=== PATIENT | male | born 2000 | race Two or more races ===

== ENCOUNTER 2020-08-17 14:06 | Emergency (ER) | payer OTHER ==
--- NOTE | 2020-08-17 15:36 | ER Document Report ---
ED Medical Screen (RME) - General Chief Complaint: Abdominal Pain Stated Complaint: ABDOMINAL PROBLEM Time Seen by Provider: 08/17/20 15:25 Mode of Arrival: Ambulatory Information source: Patient Notes: HPI; 19-year-old male who states he was sent to the emergency room by his second crusher for blood work to check his kidneys. Patient states that he has been on Humira for about a year for being immunocompromised. States he had a routine visit with his second crusher this morning he wanted labs done to monitor his kidneys. Patient offers no complaints, no nausea, no vomiting, no abdominal pain no urinary symptoms. PE: Alert and oriented x3. Lungs: Clear to auscultation without rales, rhonchi, wheezes. Heart: Regular rate rhythm without murmurs, rubs, gallops. I have greeted and performed a rapid initial assessment of this patient. A comprehensive ED assessment and evaluation of the patient, analysis of test results and completion of the medical decision making process will be conducted by additional ED providers. I have specifically instructed the patient or family members with the patient to immediately return to any nursing staff should anything change in the patient's condition or with their chief complaint. TRAVEL OUTSIDE OF THE [place] IN LAST 30 DAYS: No - Related Data Allergies/Adverse Reactions: No Known Allergies Allergy (Verified 08/17/20 15:22) Home Medications: humira Past Medical History - Social History Frequency of alcohol use: Occasional Physical Exam - Vital signs Vitals: Temp Pulse Resp BP Pulse Ox 99.2 F 75 18 122/70 98 08/17/20 14:13 08/17/20 14:13 08/17/20 14:13 08/17/20 14:13 08/17/20 14:13 Course - Vital Signs Vital signs: Temp Pulse Resp BP Pulse Ox 99.2 F 75 18 122/70 98 08/17/20 14:13 08/17/20 14:13 08/17/20 14:13 08/17/20 14:13 08/17/20 14:13
[2020-08-17 16:08] LABS: ABSOLUTE EOSINOPHILS # (AUTO) 0.2 10^3/uL (0.0-0.6); ABSOLUTE LYMPHOCYTES (AUTO) 3.6 10^3/uL (0.5-4.7); ABSOLUTE MONOCYTES (AUTO) 0.5 10^3/uL (0.1-1.4); ABSOLUTE NEUT (AUTO) 2.7 10^3/uL (1.7-8.2); BASOPHILS % (AUTO) 0.6 % (0-2); EOSINOPHILS % (AUTO) 2.6 % (0-6); HEMATOCRIT 44.4 % (37.9-51.0); HEMOGLOBIN 15.5 g/dL (13.5-17.0); LYMPHOCYTES % (AUTO) 51.3 % (13-45); MEAN CORPUSCULAR HGB CONC 34.9 g/dL (32.0-36.0); MEAN CORPUSCULAR VOLUME 83 fl (80-97); MONOCYTES % (AUTO) 7.5 % (3-13); PLATELET COUNT 197 10^3/uL (150-450); RED BLOOD COUNT 5.35 10^6/uL (4.35-5.55); TOTAL CELLS COUNTED % (AUTO) 100 %
[2020-08-17 16:19] LABS: AMORPHOUS SEDIMENT,URINE 1+ /HPF; APPEARANCE,URINE CLOUDY; BILIRUBIN,URINE NEGATIVE (NEGATIVE); COLOR,URINE YELLOW; GLUCOSE, URINE NEGATIVE (NEGATIVE); KETONES,URINE NEGATIVE (NEGATIVE); LEUKOCYTE ESTERASE,URINE NEGATIVE (NEGATIVE); NITRITE,URINE NEGATIVE (NEGATIVE); PROTEIN,URINE NEGATIVE (NEGATIVE); URINE SPECIFIC GRAVITY 1.019; UROBILINOGEN,URINE NEGATIVE mg/dL (<2.0)
[2020-08-17 16:21] LABS: ALBUMIN 5.1 g/dL (3.5-5.0); ALKALINE PHOSPHATASE 86 U/L (38-126); ANION GAP 11 (5-19); ASPARTATE AMINO TRANSFERASE 28 U/L (17-59); BILIRUBIN,DIRECT 0.2 mg/dL (0.0-0.4); BILIRUBIN,TOTAL 0.4 mg/dL (0.2-1.3); BLOOD UREA NITROGEN 14 mg/dL (7-20); CALCIUM 10.4 mg/dL (8.4-10.2); CARBON DIOXIDE 27 mmol/L (22-30); CHLORIDE 103 mmol/L (98-107); GLUCOSE 97 mg/dL (75-110); POTASSIUM 4.6 mmol/L (3.6-5.0); TOTAL PROTEIN 8.2 g/dL (6.3-8.2)
--- NOTE | 2020-08-17 17:27 | ER Document Report ---
ED General - General Chief Complaint: Abdominal Pain Stated Complaint: ABDOMINAL PROBLEM Time Seen by Provider: 08/17/20 15:25 Primary Care Provider: ELENA GARNER MD [Primary Care Provider] - Follow up as needed Mode of Arrival: Ambulatory Notes: CHIEF COMPLAINT: Lab work HPI: 19-year-old male presenting to the emergency department requesting lab work to check his kidney function. Patient saw an rheumatology specialist for uveitis and has been on Humira for same over the last 10 months since returning from [place]. Patient states that he was told he has some kind of immune compromising conditio n which required him to be on the Humira for the uveitis. He has not a good historian. He states the rheumatology specialist told him he needed to have his kidney function checked and he decided to come to the emergency department for this. He has no physical complaints at this time ROS: See HPI - all other systems were reviewed and are otherwise negative Constitutional: no fever Eyes: no drainage, no blurred vision ENT: no runny nose, no sore throat Cardiovascular: no chest pain Resp: no SOB, no cough GI: no vomiting, no diarrhea, no abdominal pain : no dysuria Integumentary: no rash Allergy: no hives Musculoskeletal: no extremity pain or swelling Neurological: no numbness/tingling, no weakness MEDICATIONS: I agree with the patient medications as charted by the RN. ALLERGIES: I agree with the allergies as charted by the RN. PAST MEDICAL HISTORY/PAST SURGICAL HISTORY: Reviewed and agree as charted by RN. SOCIAL HISTORY: Reviewed and agree as charted by RN. FAMILY HISTORY: No significant familial comorbid conditions directly related to patient complaint EXAM: Reviewed vital signs as charted by RN. CONSTITUTIONAL: Alert and oriented and responds appropriately to questions. Well-appearing; well-nourished HEAD: Normocephalic; atraumatic EYES: PERRL; Conjunctivae clear, sclerae non-icteric ENT: normal nose; no rhinorrhea; moist mucous membranes; pharynx without lesions noted, no uvula edema or deviation, no tonsillar hypertrophy, phonation normal NECK: Supple without meningismus; non-tender; no cervical lymphadenopathy, no masses CARD: RRR; no murmurs, no clicks, no rubs, no gallops; symmetric distal pulses RESP: Normal chest excursion without splinting or tachypnea; breath sounds clear and equal bilaterally; no wheezes, no rhonchi, no rales, pulse oximetry 98% on room air not hypoxic ABD/GI: Normal bowel sounds; non-distended; soft, non-tender, no rebound, no gu arding; no palpable organomegaly or masses. BACK: The back appears normal and is non-tender to palpation, there is no CVA tenderness EXT: Normal ROM in all joints; non-tender to palpation; no cyanosis, no effusions, no edema SKIN: Normal color for age and race; warm; dry; good turgor; no acute lesions noted NEURO: Moves all extremities equally; Motor and sensory function intact PSYCH: The patient's mood and manner are appropriate. Grooming and personal hygiene are appropriate. MDM: 19-year-old male presenting for lab work. Wanted his kidney function checked on the recommendation of his rheumatology specialist because he is on Humira long-term for uveitis for some kind of unknown immune compromised condition. Patient's lab work is normal. Will discharge home. I did speak with the patient at length, he is not sure what immune compromising condition he has and he should definitely follow-up with a customer insight analyst he says he will discuss this with his rheumatology specialist when he sees him this coming week TRAVEL OUTSIDE OF THE [place] IN LAST 30 DAYS: No - Related Data Allergies/Adverse Reactions: No Known Allergies Allergy (Verified 08/17/20 15:22) Home Medications: humira Past Medical History - General Information source: Patient - Social History Smoking Status: Never Smoker Frequency of alcohol use: Occasional Family History: Reviewed & Not Pertinent Physical Exam - Vital signs Vitals: Temp Pulse Resp BP Pulse Ox 99.2 F 75 18 122/70 98 08/17/20 14:13 08/17/20 14:13 08/17/20 14:13 08/17/20 14:13 08/17/20 14:13 Course - Vital Signs Vital signs: Temp Pulse Resp BP Pulse Ox 99.2 F 75 18 122/70 98 08/17/20 14:13 08/17/20 14:13 08/17/20 14:13 08/17/20 14:13 08/17/20 14:13 - Laboratory Results Result Diagrams: 08/17/20 15:42 08/17/20 15:42 Laboratory Results Interpreted: 08/17/20 08/17/20 15:42 15:42 Lymph % (Auto) 51.3 H Seg Neutrophils % 38.0 L Calcium 10.4 H Albumin 5.1 H Critical Laboratory Results Reviewed: No Critical Results - Radiology Results Critical Radiology Results Reviewed: No Critical Results Discharge - Discharge Clinical Impression: Immunocompromised state Condition: Stable Disposition: HOME, SELF-CARE Additional Instructions: Follow-up with your rheumatology specialist for reevaluation. As you are unsure of what immune compromised condition they are treating with Humira it is imperative that you obtain both her primary care provider as well as a customer insight analyst to further work-up this condition and the reason why you need to be on this medication for such a long period of time Referrals: ELENA GARNER MD [Primary Care Provider] - Follow up as needed
[2020-08-17 17:35] VITALS: BP 123/68
== END 2020-08-17 17:35 | disposition home or self-care (01) ==
LOC: ER 14:06
DX: D84.9 Immunodeficiency, unspecified (principal); R10.9 Unspecified abdominal pain; Z79.1 Long term (current) use of non-steroidal anti-inflammatories (NSAID)
CPT/HCPCS: 36415; 80053; 81001; 85025; 99283